=== PATIENT | male | born 2000 | race Caucasian/White ===

== ENCOUNTER 2024-02-26 23:09 | Emergency (ER) | payer BC, SELFPAY ==
[2024-02-26 23:18] VITALS: BP 130/92; PULSE 86; RESP 16; TEMP 38.5; O2SAT 98
--- NOTE | 2024-02-26 23:32 | ED.GENADULT ---
HPI - General Adult General Chief complaint: Dental/Oral/Mouth Injury/Pain Stated complaint: abscess tooth Time Seen by Provider: 02/26/24 23:33 History of Present Illness HPI narrative: Patient c/o multiple tooth abscesses on the right side x 2 weeks. Patient took tylenol/motrin combo at 1700. Temperature 101 .3f in triage. Patient states he does not see a dentist. 23-year-old man presenting to the emergency department with concern of dental pain. Concern of abscess is developing on the right side of his mouth over the last couple of weeks. Does not describe any swelling necessarily but underlying history of troubled teeth and has had some extractions. Has been taking ibuprofen and acetaminophen with some relief until about 2 days ago when things really worsened.. Does smoke. Does not see a dentist regularly. Noted to have a fever on triage. Related Data Home Medications ?Medication ?Instructions ?Recorded ?Confirmed No Known Home Medications 02/26/24 02/26/24 Allergies Allergy/AdvReac Type Severity Reaction Status Date / Time No Known Drug Allergies Allergy Verified 02/26/24 23:21 Review of Systems Status of ROS: Reports: 6 or more systems reviewed and unremarkable except as noted in History and below [facility] Social History Smoking Status: Current every day smoker What tobacco products do you use: cigarettes Smoking packs per day: 0.75 Smoking cigarettes per day: 15.0 Do you use any of these nicotine containing products: None Second hand tobacco smoke exposure: No Non-prescribed substance use: denies use service: No Exam Narrative: Exam Narrative: Very pleasant. Sits up as I enter the room. Hand at right jaw. Is breathing easily. No demonstrated trismus. Skin is warm and dry. Does not look flushed. Heart regular rate and rhythm. Neck is supple without lymphadenopathy. Oropharyngeal exam with some extracted teeth others in decay. Tooth number 30 and 31 look to have been extracted. Problem tooth in jaw tooth number 29. Cracked with some missing. Upper right maxillary teeth though noted to be most troublesome. Some with gingival erosion. Does not appear to be any discrete swelling or abscess formation in the mouth or anything palpable on the right side of the face. Const: Vital Signs, click to edit/add: Vital Signs - 24 hr 02/26/24 23:18 02/27/24 00:11 Temperature 101.3 F H 98.9 F Pulse Rate [Right Pulse Oximeter] 86 72 Respiratory Rate 16 Blood Pressure [Le ft Upper Arm] 130/92 H Pulse Oximetry 98 98 Oxygen Delivery Me thod Room Air Room Air Documenting provider has reviewed patient's vital signs: yes Course Vital Signs Vital signs: Initial Vital Signs Temperature 101.3 F H 02/26/24 23:18 Temperature Source Temporal Artery Scan 02/26/24 23:18 Pulse Rate 86 02/26/24 23:18 Pulse Rhythm Regular 02/26/24 23:18 Respiratory Rate 16 02/26/24 23:18 Blood Pressure 130/92 H 02/26/24 23:18 Blood Pressure Mean 104 02/26/24 23:18 Blood Pressure Position Sitting 02/26/24 23:18 Pulse Oximetry 98 02/26/24 23:18 Oxygen Delivery Method Room Air 02/26/24 23:18 Vital Signs Temperature 101.3 F H 02/26/24 23:18 Pulse Rate 86 02/26/24 23:18 Respiratory Rate 16 02/26/24 23:18 Blood Pressure 130/92 H 02/26/24 23:18 Pulse Oximetry 98 02/26/24 23:18 Oxygen Delivery Method Room Air 02/26/24 23:18 Temperature 98.9 F 02/27/24 00:11 Pulse Rate 72 02/27/24 00:11 Respiratory Rate 16 02/26/24 23:18 Blood Pressure 130/92 H 02/26/24 23:18 Pulse Oximetry 98 02/27/24 00:11 Oxygen Delivery Method Room Air 02/27/24 00:11 Medications Administered Medications: Discontinued Medications Generic Name Dose Route Start Last Admin Trade Name Jamariq PRN Reason Stop Dose Admin Bupivacaine HCl 5 ml 02/26/24 23:44 02/26/24 23:58 Bupivacaine 0.25% 30 Ml INJECTION 02/26/24 23:45 5 ml ONCE ONE Administration Medical Decision Making MDM Narrative Medical decision making narrative: Difficult to say whether or not there is an abscess. I do believe has dental pain. Does have a dentist he has not seen in a while. He would appreciate injectable anesthetic of some sort. Not convinced he has a fever here. He had not been feeling hot her chilled. Recheck of temperature shows that there is not a fever. He would like to proceed with injection. I did inject bupivacaine 1.5 mL in inferior and superior alveolar blocks on the right side. This did result in some mild improvement symptoms mostly on the lower jaw. Returned then to place 1 mL in buccal blocks of the upper and lower right with essentially full resolution of pain. See patient discharge plan for further discussion You might try dental packing or varnish with [employer] product. I believe they carry that in [facility]. This can buy you time. Please schedule follow-up soon as possible with your dentist or also see this list of emergency dental options. Temporarily can take up to 800 mg ibuprofen per dose. Can also take up to 1000 mg of acetaminophen per dose. Prescribing [place] and penicillin from [facility]. [place] is an opiate as discussed and each tablet contains 325 mg of acetaminophen. Please do what you can to quit smoking. See QuitPlan as a place to start. Discharge Plan Discharge Clinical Impression: Pain, dental Patient Disposition: Home w/ Parent or Adult Condition: Improved Additional Instructions: You might try dental packing or varnish with [employer] product. I believe they carry that in [facility]. This can buy you time. Please schedule follow-up soon as possible with your dentist or also see this list of emergency dental options. Temporarily can take up to 800 mg ibuprofen per dose. Can also take up to 1000 mg of acetaminophen per dose. Prescribing [place] and penicillin from [facility]. [place] is an opiate as discussed and each tablet contains 325 mg of acetaminophen. Please do what you can to quit smoking. See QuitPlan as a place to start. Prescriptions: No Action No Known Home Medications Follow Up/Referrals: Provider,Not a Local [Primary Care Provider] - Stand Alone Forms: [employer] Info Instructions
[2024-02-26] MEDS: BUPIVACAINE 0.25% 30 ML 5 ML INJECTION (23:58)
[2024-02-27 00:11] VITALS: PULSE 72; TEMP 37.2; O2SAT 98
--- NOTE | 2024-02-27 00:39 | PC.NURSE ---
written and verbal D/C per MD and RN. Pt with scripts to get out of insty meds. Ambulate out with stady gait.
== END 2024-02-27 00:55 | disposition home or self-care (01) ==
PROVIDERS: Emergency Provider Family Medicine
DX: K08.89 Other specified disorders of teeth and supporting structures (principal)
CPT/HCPCS: 64400; 99283; 99284; J0665